=== PATIENT | male | born 1955 | race Caucasian/White ===

== ENCOUNTER → 2019-02-24 07:52 | Outpatient (CLI) | payer OTHER ==
[2015-09-21 15:54] VITALS: BMI 46.2
[~2019-02-24 07:52] MED LIST: ASPIRIN81 MG PO; BAYER CHEWABLE81 MG PO; COREG 3.1253.125 MG PO; COREG12.5 MG PO; EFFIENT10 MG PO; GLUCOPHAGE500 MG PO; LIPITOR80 MG PO; LISINOPRIL5 MG PO; METOPROLOL TART50 MG; PLAVIX75 MG PO; SYNTHROID25 MCG PO; VASERETIC 10-251 TAB; VASOTEC2.5 MG; ZESTRIL20 MG PO
--- NOTE | 2019-02-27 10:07 | EC ---
PATIENT:VICKY LAND DATE OF SERVICE: 02/24/19 SEX: M MEDICAL RECORD: [id number] DATE OF : 57 LOCATION:[facility] AGE OF PATIENT: 63 ADMISSION DATE: 02/24/19 REFERRING PHYSICIAN: INTERPRETING PHYSICIAN: SHERI BECK MD ECHOCARDIOGRAM REPORT ECHO CHARGES 4 ECHO COMPLETE Date: 02/24/19 CLINICAL DIAGNOSIS: HTN/CAD ECHOCARDIOGRAPHIC MEASUREMENTS (adult normal given) AC root (d.<3.7cm) 3.8 cm LV Septum d (<1.2 cm> 1.4 cm Valve Excursion 1.4 cm LV Septum (systole) 14.6 cm Left Atria (s.<4.0cm> 3.9 cm LVPW d(<1.2cm) 1.4 cm RV (d.<2.3cm) 3.5 cm LVPW (sytole) 1.7 cm LV diastole(<5.6CM) 5.5 cm MV E-F(>70mm/sec) cm LV systole 4.4 cm LVOT Diameter 2.1 cm MV exc.(>10mm) 1.4 cm Est.ejection fraction (50-75%) % DOPPLER: LVIT cm/sec A 86.0 cm/sec E 65.0 cm/sec LA cm/sec RVSP 17 mmHg LVOT 110 cm/sec AOP1/2T m/s Asc. Ao 149 cm/sec RVOT 100 cm/sec RA cm/sec PA 145 cm/sec AV Gradient Peak 8.85 mmHg AV Mean 4.93 mmHg AV Area 2.5 cm MV Gradient Peak 3.87 mmHg MV Mean 1.79 mmHg MV Area cm COMMENTS: Enrollment Processor: 2 ALLEN CAI Admittance Attendant: 3 Dr. Rodriguez TAPE# PACS Pericardial Effusion N DATE OF SERVICE: Adequate 2D Echo, Color Flow, Spectral Doppler, And M-Mode LVH is present. LV internal dimension is normal. Wall motion is normal. EF is greater than 55%. Aortic valve is tricuspid. No evidence of stenosis by Doppler interrogation. Left atrium is normal. Mitral valve shows no prolapse. Trace MR. Right-sided chambers are normal. Trace TR. TRANSINT:[id number] Voice Confirmation ID: [id number] DOCUMENT ID: [id number] ECHOCARDIOGRAM REPORT [id number] VICKY LAND SHERI BECK MD at 1007 CC: [id number] DICTATION DATE: 02/24/19 181 LICENSED DIRECT ENTRY MIDWIFE: 02/25/19 0100 DEP CLI 02/24/19 [id number] [place] [address]
== END | disposition home or self-care (01) ==
LOC: D.HCCARDIO 07:52
PROVIDERS: ATTEND Internal Medicine Interventional Cardiology
DX: I25.10 Atherosclerotic heart disease of native coronary artery without angina pectoris (principal)

== ENCOUNTER → 2020-03-08 08:47 | Outpatient (CLI) | payer OTHER ==
[2015-09-21 15:54] VITALS: BMI 46.2
--- NOTE | 2020-03-11 09:10 | EC ---
PATIENT:VICKY LAND DATE OF SERVICE: 03/08/20 SEX: M MEDICAL RECORD: [id number] DATE OF : 57 [facility] AGE OF PAT[facility]: 64 ADMISSION DATE: 03/08/20 REFERRING PHYSICIAN: INTERPRETING PHYSICIAN: SHERI BECK MD ECHOCARDIOGRAM REPORT ECHO CHARGES 4 ECHO COMPLETE Date: 03/08/20 CLINICAL DIAGNOSIS: H/O HTN ECHOCARDIOGRAPHIC MEASUREMENTS (adult normal given) AC root (d.<3.7cm) 3.9 cm LV Septum d (<1.2 cm> 1.6 cm Valve Excursion 1.8 cm LV Septum (systole) 1.7 cm Left Atria (s.<4.0cm> 3.7 cm LVPW d(<1.2cm) 1.2 cm RV (d.<2.3cm) 3.1 cm LVPW (sytole) 1.9 cm LV diastole(<5.6CM) 5.8 cm MV E-F(>70mm/sec) cm LV systole 4.3 cm LVOT Diameter 2.1 cm MV exc.(>10mm) cm Est.ejection fraction (50-75%) % DOPPLER: LVIT cm/sec A 102 cm/sec E 79.0 cm/sec LA cm/sec RVSP mmHg LVOT 100 cm/sec AOP1/2T m/s Asc. Ao 152 cm/sec RVOT 86.0 cm/sec RA cm/sec PA 139 cm/sec AV Gradient Peak 9.3 mmHg AV Mean 5.6 mmHg AV Area 2.4 cm MV Gradient Peak 4.8 mmHg MV Mean 2.0 mmHg MV Area cm COMMENTS: OP - HC Hospitality Services Manager: 1 IVY HEROE Manager System: 3 Dr. Rodriguez TAPE# PACS Pericardial Effusion N DATE OF SERVICE: Adequate 2D, color flow imaging, spectral Doppler, and M-Mode. No LVH. LV internal dimension is dilated. LV wall motion shows global hypokinesis with reduced EF, estimated EF 40% to 45%. Aortic valve sclerosis without stenosis by Doppler interrogation. Left atrium normal at 3.7 cm. Mitral valve shows no prolapse. Trace MR. Right-sided chambers are grossly normal. Trace TR. ECHOCARDIOGRAM REPORT [id number] VICKY LAND TRANSINT:[id number] Voice Confirmation ID: [id number] DOCUMENT ID: [id number] SHERI BECK MD at 0910 CC: [id number] DICTATION DATE: 03/08/20 1251 SOLDERING MACHINE FEEDER: 03/08/20 2243 DEP CLI 03/08/20 [facility] [address] [place] [address]
== END | disposition home or self-care (01) ==
LOC: D.HCCECHO 08:47
PROVIDERS: ATTEND Internal Medicine Interventional Cardiology
DX: I10 Essential (primary) hypertension (principal)

== ENCOUNTER 2020-06-03 06:15 | Day surgery (SDC) | payer OTHER ==
[~2020-06-03] VITALS: Ht 177.8 cm; Wt 122.5 kg
--- NOTE | ~2020-06-03 | HEMODYNAMI ---
PATIENT:VICKY LAND MEDICAL RECORD: [id number] : 57 LOCATION:D.CAT ADMISSION DATE: 06/03/20 Generatedon:06/03/20209:23 Patient name: VICKY LAND Patient #: [id number] SSN: : 1955 Date of study: 06/03/2020 Page: Of Hemodynamic Procedure Report Patient Data Patient Demographics Procedure consent was obtained First Name: VICKY Gender: Male Last Name: SHANDA : 1955 Patient #: [id number] Age: 64 year(s) Race: Additional ID: [id number] Contact details Address: [address] [place] [address] lane State: [place] City: [place] Zip code: [address] Past Medical History Allergies: No known allergies Admission Admission Data Admission Date: 06/03/2020 Admission Time: 6:15 Arrival Date: 06/03/2020 Arrival Time: 0:00 Height (in.): 70.08 BSA: 2.38 (m2) Height (cm.): 178 BMI: 38.82 (kg/m2) Weight (lbs.): 271.17 Weight (kg.): 123 Lab Results Lab Result Date: 06/03/2020 Lab Result Time: 0:00 Biochemistry Name Units Result Min Max BUN mg/dl 13 --(--*-)-- 7 18 Creatinine mg/dl 0.9 --(-*--)-- 0.6 1.3 eGFR ml/min 90 --(*---)-- 90 120 NONAFRICAN CBC Name Units Result Min Max Hematocrit % 31.5 *-(----)-- 42 54 Hemoglobin g/dl 8.9 *-(----)-- 13.5 17.5 Procedure Procedure Types Cath Procedure Diagnostic Procedure [facility] LH w/Coronaries FFR/IVUS FFR Initial Sedation Charges Moderate Sedation up to 30 minutes PCI Procedure PTCA PTCA Initial Hemochron ACT Test Procedure Description Procedure Date Procedure Date: 06/03/2020 Procedure Start Time: 8:35 Procedure Staff Name Function Khanh Echavarria MD Performing Physician Melva Fisher RT Scrub Shy العراقي RT Monitor Daysi Tomlinson RT Office Agent Alejandra Jeffers RN Nurse Procedure Data Cath Procedure Fluoroscopy Diagnostic fluoroscopy Total fluoroscopy Time: 7.1 time: 7.1 min min Diagnostic fluoroscopy Total fluoroscopy dose: dose: 1755 mGy 1755 mGy Contrast Material Contrast Material Type Amount (ml) Isovue 300 154 Entry Location Entry Primary Successful Side Size Upsize Upsize Entry Closure Succes sful Closure Location (Fr) 1 (Fr) 2 (Fr) Remarks Device Remarks Femoral Right 5 Fr 6 Fr Exoseal artery Short Estimated blood loss: 10 ml Diagnostic catheters Device Type Used For End Catheter Placement MULTIPACK JL 4.0 5Fr Left Coronary catheter Angiography MULTIPACK 3DRC 5Fr Right Coronary catheter Angiography DIAGNOSTIC AR MOD 5Fr Right Coronary Catheter ([id number]) Angiography MULTIPACK Pigtail 5 Fr LV Angiography catheter Procedure Complications No complications Procedure Medications Medication Administration Route Dosage 0.9% NaCl I.V. 100 ml/hr Oxygen etCO2 Nasal cannula 2 l/min Lidocaine 2% added to field 20 Heparin Flush Bag added to field 2 bags (1000units/500ml NS) Versed I.V. 2 mg Fentanyl I.V. 50 mcg Heparin Bolus I.V. 2000 units Heparin Bolus I.V. 3000 units Fentanyl I.V. 50 mcg Effient P.O. 60 mg Hemodynamics Rest BSA: 2.38 (m2) HGB: 8.9 (g/dl) O2 Consumption: Estimated: 306.19 (ml/min) O2 Con sumption indexed: Estimated:128.65 (ml/min/m) Heart Rate: 101 (bpm) Pressure Samples Time Site Value (mmHg) Purpose Heart Use Rate(bpm) 8:45 LV 147/17,18 Snapshot 97 Snapshots Pre Cath Intra NCS Post Cath Vital Signs Time Heart Resp SPO2 etCO2 NIBP (mmHg) Rhythm Pain Sedation Rate (ipm) (%) (mmHg) Status Level (bpm) 8:19:59 101 28 100 35 176/114(139) ST 0 (11) 10(A) , No pain 8:24:27 100 19 100 33.8 161/92(123) NSR 0 (11) 10(A) , No pain 8:28:45 98 21 100 30 152/89(117) NSR 0 (11) 10(A) , No pain 8:33:01 95 20 100 36.8 136/85(113) NSR 0 (11) 10(A) , No pain 8:38:00 98 24 100 36.8 Measuring NSR 0 (11) 10(A) , No pain 8:38:12 96 23 100 34.5 149/102(127) NSR 0 (11) 10(A) , No pain 8:42:32 96 16 100 33.8 145/90(114) NSR 0 (11) 10(A) , No pain 8:46:47 100 13 100 26.3 136/86(101) NSR 0 (11) 10(A) , No pain 8:50:58 97 13 100 30 127/89(108) NSR 0 (11) 10(A) , No pain 8:55:12 98 16 100 39 137/87(109) NSR 0 (11) 10(A) , No pain 8:59:26 95 17 100 33 142/88(116) NSR 0 (11) 10(A) , No pain 9:03:34 85 19 100 30 129/95(115) NSR 0 (11) 10(A) , No pain 9:08:33 94 34 35.3 Measuring NSR 0 (11) 10(A) , No pain 9:08:48 94 27 100 35.3 170/108(139) NSR 0 (11) 10(A) , No pain Medications Time Medication Route Dose Verified Delivered Reason Notes Effectiveness by by 8:18:48 0.9% NaCl I.V. 100 Khanh Roberts used for ml/hr ItaliaWilmer Jeffers procedure MD WHITNEY 8:18:54 Oxygen etCO2 2 Khanh Roberts used for Nasal l/min [facility] procedure cannula MD WHITNEY 8:18:59 Lidocaine 2% added 20ml Khanh Cassidy for local to vial [facility] anesthetic field MD CATES 8:19:03 Heparin Flush added 2 Khanh Khanh used for Bag to bags [facility] procedure (1000units/500ml field MD CATES NS) 8:35:03 Fentanyl I.V. 50 Khanh Donatoa for sedation mcg [facility] Wilmer Jeffers MD RN 8:35:54 Versed I.V. 2 mg Khanh Roberts for sedation [facility] Wilmer Jeffers MD RN 8:42:15 Fentanyl I.V. 50 Khanh Roberts for sedation mcg St Wilmer Jeffers MD RN 8:45:59 Heparin Bolus I.V. 2000 Khanh Roberts for verifi ed units St Wilmer Jeffers anticoagulation with Dr. CTAES RN [facility] 8:59:02 Heparin Bolus I.V. 3000 Khanh Roberts for units ItaliaWilmer Jeffers anticoagulation RN 9:09:16 Effient P.O. 60 mg Khanh Roberts for ItaliaWilmer Jeffers antiplatelet RN therapy Procedure Log Time Note 8:09:08 Informed consent obtained and on chart 8:10:31 Procedure Status Elective Heart Cath (OP). 8:10:47 Daysi Tomlinson RT(R) sent for patient. Start room use. 8:10:50 Time tracking: Regular hours (M-F 7:00 - 5:00) 8:10:58 Plan of Care:Hemodynamics will remain stable., Cardiac rhythm will remain stable., Comfort level will be maintained., Respiratory function will remain adequate., Patient/ family verbilizes understanding of procedure., Procedure tolerated without complication., Recovers from procedure without complications.. 8:11:20 Patient diabetic? Yes. 8:11:23 If diabetic: On Metformin? Yes 8:11:29 If on Metformin: Last Dose? 06/01/2020 8:12:28 Patient received from Pre/Post Procedure Room to CCL 1 Alert and oriented. Tansferred to table in Supine position. 8:12:31 Warm blankets applied, and thelma hugger turned on for patient comfort. 8:12:32 ECG and BP/O2 sat monitors applied to patient. 8:12:32 Correct patient and procedure confirmed by team. 8:12:45 H&P Date Dictated: 06/03/2020 H&P Addendum completed by physician on day of procedure. (MUST COMPLETE FOR ALL OUTPATIENTS), New H&P dictated by physician.. 8:12:47 Pre-procedure instructions explained to patient. 8:12:48 Pre-op teaching completed and patient verbalized understanding. 8:12:50 Family in patients room. 8:12:52 Patient NPO since Midnight. 8:13:09 Patient allergic to No known allergies 8:13:14 Is the patient allergic to Iodine/contrast media? No. 8:13:18 Is patient on blood thinner?No 8:14:22 Lab Result : Hemoglobin 8.9 g/dl 8:14: Lab Result : Hematocrit 31.5 % 8:14:22 Lab Result : eGFR NONAFRICAN 90 ml/min 8:14:22 Lab Result : BUN 13 mg/dl 8:14: Lab Result : Creatinine 0.9 mg/dl 8:14:45 Arrival Date: 06/03/2020 12:00:00 AM 8:14:50 Patient Height : 70.08 inches 8:14:55 Patient Weight : 271.17 lbs 8:18:19 ----Pre-sedation anethsthesia assessment.---- 8:18:21 ----Pre-sedation anethsthesia assessment.---- 8:18:28 Previous problem with sedation/anesthesia? No ? 8:18:31 Snore? Yes 8:18:41 Vital chart was started 8:18:48 0.9% NaCl 100 ml/hr I.V. was administered by Alejandra Jeffers RN; used for procedure; Verbal order read back and verified. 8:18:54 Oxygen 2 l/min etCO2 Nasal cannula was administered by Alejandra Jeffers RN; used for procedure; Verbal order read back and verified. 8:18:59 Lidocaine 2% 20ml vial added to field was administered by Khanh Echavarria MD; for local anesthetic; Verbal order read back and verified. 8:19:03 Heparin Flush Bag (1000units/500ml NS) 2 bags added to field was administered by Khanh Echavarria MD; used for procedure; Verbal order read back and verified. 8:19:35 Sleep apnea? Yes 8:19:39 Deviated septum? Unknown 8:19:42 Opens mouth fully? Yes 8:19:45 Sticks out tongue? Yes 8:20:21 Airway obstruction? No RECOVERING FORM DOUBLE PNEUMONIA ON RIGHT 8:20:27 Dentures? No ? 8:20:32 8:20:36 Pre procedure: right dorsailis pedis pulse 2+ Normal; easily identifiable; not easily obliterated 8:20:50 IV patent on arrival in right antecubital with 0.9% NaCl at O. 8:20:55 Lab results completed and on chart. 8:21:03 Right groin area was prepped with chlora-prep and draped in sterile fashion 8:21:05 Sharps counted by scrub and verified by R.N. 8:21:05 Alarms reviewed by R. N. 8:21:11 Use device set Femoral Dx 8:21:13 ACIST Syringe (85463) opened to sterile field. 8:21:14 Bag Decanter (2002S) opened to sterile field. 8:21:15 Medline Cath Pack ([id number]) opened to sterile field. 8:21:17 ACIST Hand Control (57631) opened to sterile field. 8:21:18 ACIST Manifold (90890) opened to sterile field. 8:21:19 DIAGNOSTIC Multipack 5Fr catheter set ([id number]) opened to sterile field. 8:21:20 Tegaderm 4 x 4 (1626W) opened to sterile field. 8:21:22 EMERALD Guide Wire (735-560) opened to sterile field. 8:21:22 SHEATH 5FR [place] (JRZ633) opened to sterile field. 8:23:39 ACCPatient has been prescribed/administered the following anti-anginal medication within the last 2 weeks: Beta Kristin 8:23:47 ACC Patient presents with Stable Angina CCS Anginal Class 3--Marked limitation of physical activity, angina occurs with ordinary activity.. 8:23:51 Baseline sample Acquired. 8::55 Rhythm: sinus rhythm 8:23:59 Full Disclosure recording started 8:28:24 Risk of Mortality: 1.4 8:28:30 Risk of blood transfusion: 7.7 8:28:38 Risk of KENNETH: 0.8 8:34:31 Physician arrived 8:34:32 --------ALL STOP TIME OUT------ 8:34:33 Final Timeout: patient, procedure, and site verified with staff and physician. All members of the team are in agreement. 8:34:36 Right groin site verified by team. 8:34:41 Fire Safety Assessment: A--An alcohol-based skin anteseptic being used preoperatively., C--Open oxygen or nitrous oxide is being used., D--An ESU, laser, or fiber-optic light is being used. 8:34:45 Physical assessment completed. ASA score P 2 - A patient with mild systemic disease as per Khanh Echavarria MD. 8:34:49 1) 90+ Normal kidney functon but urine findings or structural abnormalities or genetic trait point to kidney disease. 8:34:53 Maximum allowable contrast dose (3.7 X eGFR X 0.75)250 ml. 8:34:59 Sedation plan: IV Moderate Sedation Medication:Versed, Fentanyl 8:35:03 Fentanyl 50 mcg I.V. was administered by Alejandra Jeffers RN; for sedation; Verbal order read back and verified. 8:35:05 Procedure started. 8:35:11 Local anesthetic to right femoral artery with Lidocaine 2% by Khanh Echavarria MD.INITIAL ACCESS ONLY 8:35:54 Versed 2 mg I.V. was administered by Alejandra Jeffers RN; for sedation; Verbal order read back and verified. 8:37:19 A 5 Fr sheath was inserted into the Right Femoral artery 8:37:23 Zero performed for pressure channel P1 8:37:39 A MULTIPACK JL 4.0 5Fr catheter was advanced over the wire and used for Left Coronary Angiography. 8:38:34 LCA angiography performed. 8:38:49 Injector settings: Ml/sec: 3, Volume: 6, 8:40:05 Catheter removed. 8:40:29 A MULTIPACK 3DRC 5Fr catheter was advanced over the wire and used for Right Coronary Angiography. 8:41:40 RCA angiography performed. 8:41:48 Injector settings: Ml/sec: 3, Volume: 6, 8:42:15 Fentanyl 50 mcg I.V. was administered by Alejandra Jeffers RN; for sedation; Verbal order read back and verified. 8:43:27 A DIAGNOSTIC AR MOD 5Fr Catheter (665275E) was advanced over the wire and used for Right Coronary Angiography. 8:43:59 Injector settings: Ml/sec: 3, Volume: 6, 8:44:03 Catheter removed. 8:44:11 A MULTIPACK Pigtail 5 Fr catheter was advanced over the wire and used for LV Angiography. 8:45:09 LV gram done using [place] 8:45:59 Heparin Bolus 2000 units I.V. was administered by Alejandra Jeffers RN; for anticoagulation; verified with Dr. Rodriguez Verbal order read back and verified. 8:46:10 Injector settings: Ml/sec: 10, Volume: 20, 8:46:12 EF : 20 % 8:46:30 LV hemodynamics recorded. 8:46:37 Catheter removed. 8:46:38 Proceeding to intervention. 8:47:13 [place] Verrata Plus pressure wire (77858D) opened to sterile field. 8:47:19 FFR/IFR wire advanced. 8:51:14 Wire advanced across lesion. 8:54:14 mLAD lesion measured at 0.62 with IFR 8:55:17 SHEATH 6FR [place] (PRT018) opened to sterile field. 8:55:28 BMW 300cm [place] 2 J wire ([id number]) opened to sterile field. 8:55:36 INFLATOR Merit BasixCompak (TW8276) opened to sterile field. 8:55:45 GUIDE 6FR XBLAD 3.5 catheter (63275047) opened to sterile field. 8:56:16 Proceeding to intervention. 8:56:29 Sheath upsized to a 6 Fr Short. 8:56:37 ACC Pre-intervention BARBIE Flow is 3. 8:56:57 6 Fr XBLAD3.5 guide catheter was inserted over the wire 8:57:05 KPS934 wire advanced. 8:58:10 Pre PCI Site: Habematolel mLAD has 80% stenosis. 8:59:02 Heparin Bolus 3000 units I.V. was administered by Alejandra Jeffers RN; for anticoagulation; Verbal order read back and verified. 9:01:34 Inflate balloon Inflation number: 1 A EMERGE OTW 3.0 x 15 balloon ([id number]) was prepped and advanced across the Mid LAD , then inflated to 12 MARLENE for 0:24 (min:sec) . 9:02:09 Inflation number: 2 The EMERGE OTW 3.0 x 15 balloon ([id number]) was reinflated across the Mid LAD , to 14 MARLENE for 0:27 (min:sec) . 9:03:03 Inflation number: 3 The EMERGE OTW 3.0 x 15 balloon ([id number]) was reinflated across the Mid LAD , to 14 MARLENE for 0:18 (min:sec) . 9:03:48 Balloon removed over the wire. 9:03:49 Wire removed. 9:03:50 Guide catheter removed. 9:04:23 Post PCI Site: Habematolel mLAD has 0% stenosis. 9:04:37 ACC Post-intervention BARBIE Flow is 3. 9:05:37 EXOSEAL 6Fr (EX600) opened to sterile field. 9:05:52 Sheath removed intact; hemostasis achieved with Exoseal to the Right Femoral artery. 9:05:56 Procedure ended.(Physican Out) 9:06:16 Contrast amount:Isovue 300 154ml. 9:06:24 Fluoroscopy time 07.10 minutes. 9:06:30 Fluoroscopy dose: 1755 mGy 9:06:30 Flurop Dose total: 1755 9:06:38 Dose Area Product 12596 mGy/cm. 9:06:44 Maximum allowable dose exceeded? No. 9:06:45 Sharps counted by scrub and verified by R.N. 9:06:47 Insertion/operative site no bleeding no hematoma. 9:06:51 Post-op/insertion site Right Femoral artery dressed using a 4 x 4 and Tegaderm. 9:06:57 Post-procedure physical assessment completed. ASA score P 2 - A patient with mild systemic disease as per Khanh Echavarria MD. 9:07:01 Post procedure rhythm: unchanged. 9:07:13 Estimated blood loss: 10 ml 9:07:15 Post procedure instruction explained to patient.Patient verbalizes understanding. 9:07:17 Patient needs reinforcement of post procedure teaching. 9:08:34 ACT drawn and resulted at 204 seconds. (normal therapeutic range 180-240 seconds). 9:09:05 Procedure type changed to Cath procedure, Diagnostic procedure, LHC, LHC w/Coronaries, FFR/IVUS, FFR Initial, Sedation Charges, Moderate Sedation up to 30 minutes, PCI procedure, PTCA, PTCA Initial, Hemochron ACT Test 9:09:07 Procedure and supply charges have been captured, reviewed, submitted and are correct. 9:09:16 Effient 60 mg P.O. was administered by Alejandra Jeffers RN; for antiplatelet therapy; Verbal order read back and verified. 9:11:23 Procedure Complication : No complications 9:11:31 Vital chart was stopped 9:12:28 [facility] Findings: MVD- PCI performed (see procedure note) 9:12:30 Operative report dictated upon procedure completion. 9:18:02 Full Disclosure recording stopped 9:21:44 See physician's report for complete and final results. 9:21:46 Report given to Pre/Post Procedure Room. 9:21:51 Patient transfered to Pre/Post Procedure Room with Stretcher. 9:22:02 ACC-PCI Only Patient was given prescriptions, or instructed by Khanh Echavarria MD to start/continue the following medications upon discharge: Effient 9:22:04 End room use (Document Last) Intervention Summary Intervention Notes Time ActionType Lesion and Equipment Action# Pressure Duration Attributes Used 9:01:34 Inflate Mid LAD EMERGE OTW 1 12 00:24 balloon 3.0 x 15 balloon ([id number]) 9:02:09 Reinflate Mid LAD EMERGE OTW 2 14 00:27 balloon 3.0 x 15 balloon ([id number]) 9:03:03 Reinflate Mid LAD EMERGE OTW 3 14 00:18 balloon 3.0 x 15 balloon ([id number]) Device Usage Item Name Manufacture Quantity Catalog Number Hospital Part Current Minimal Lot# / Charge Number Stock Stock Serial# Code ACIST Acist 1 80033 933139 402666 582076 20 Syringe Medical (07924) Systems Inc Bag Decanter Microtek 1 2001S 610205 92854 746108 5 (2001S) Medical Inc. Medline Cath Medline 1 [id number] 312040 51936 920505 5 Pack ([id number]) ACIST Hand Acist 1 26311 894498 147909 370116 5 Control Medical (26575) Systems Inc ACIST Acist 1 26478 302778 803489 928581 5 Manifold Medical (23506) Systems Inc DIAGNOSTIC Cardinal 1 WB0888 158623 32351 062124 30 [place] [employer] Health 5Fr catheter set (EZ0318) Tegaderm 4 x 3M 1 1626W 148973 120004 465894 5 4 (1626W) SHEATH 5FR Terumo 1 IRX878 089249 074926 368404 5 [place] (DJA915) EMERALD Cardinal 1 502-455 864446 649564 016043 5 Guide Wire Health (502455) MULTIPACK JL Cardinal 1 010861 5 4.0 5Fr Health catheter MULTIPACK Cardinal 1 268699 5 3DRC 5Fr Health catheter DIAGNOSTIC Cardinal 1 244343Y 615586 112392 367627 15 AR MOD 5Fr Health Catheter (711184T) MULTIPACK Cardinal 1 216481 5 Pigtail 5 Fr Health catheter [place] 1 00600J 016099 732798672 152357 5 Verrata Plus pressure wire (65367Q) SHEATH 6FR Terumo 1 VRQ496 742982 386981 660891 40 [place]ola (EYC599) BMW 300cm [place] 1 0061445T 992995 853368 539381 5 [place] 2 Vascular J wire (3265842Q) INFLATOR Merit 1 MX0935 992905 354634 521643 15 Merit [facility] [place] Medical BasixCompak (UN8322) GUIDE 6FR Cardinal 1 [id number] 826842 045849 467639 10 XBLAD 3.5 Health catheter (89369851) EMERGE OTW [place] 1 [id number] 867998 169592 997226 5 [id number] 3.0 x 15 Scientific balloon ([id number]) EXOSEAL 6Fr Cardinal 1 EX600 593287 715663 049483 10 (EX600) Health Signature Audit [place] Stage Time Signature Unsigned Intra-Procedure 06/03/2020 Shy 9:22:34 AM Dulce Maria RT(R) (CV) Intra-Procedure 06/03/2020 Alejandra Jeffers 9:23:00 AM RN Intra-Procedure 06/03/2020 Khanh Vega 9:23:24 AM Wilmer CATES [facility] [address] [facility] [place] [address]
[2020-06-03 07:11] VITALS: BP 159/80; Ht 177.8 cm; Wt 122.5 kg
[2020-06-03 07:18] LABS: BASOPHILS 2.1 % (0-2); EOSINOPHILS 2.5 % (0-7); HEMATOCRIT 31.5 % (42.0-54.0); HEMOGLOBIN 8.9 g/dL (13.5-17.5); LYMPHOCYTES 16.7 % (15-50); MCHC 28.3 g/dL (31.0-37.0); MCV 63.9 fL (80.0-100.0); MONOCYTES 7.9 % (2-11); NEUTROPHILS 70.8 % (40-80); RBC 4.93 10x6/uL (4.20-6.10); RDW 19.1 % (11.5-14.5); WBC 4.3 10x3/uL (4.8-10.8)
[2020-06-03] MEDS ORDERED: SYNTHROID125 MCG PO (07:24)
[2020-06-03] MEDS ORDERED: GLIPIZIDE10 MG PO (07:25)
[2020-06-03] MEDS ORDERED: VICTOZA0.6 MG/0.1 SQ (07:25)
[2020-06-03 07:34] LABS: MCH 18.1 pg (26.0-34.0); PLATELET COUNT 271 10x3/uL (130-400)
[2020-06-03 07:40] LABS: ALT (SGPT) 29 U/L (10-68); CALC OSMOLALITY 279 mosm/kg (275-300); CALCIUM 8.8 mg/dL (8.5-10.1); CARBON DIOXIDE 25.3 mmol/L (21.0-32.0); CHLORIDE - SERUM 101 mmol/L (98-107); CHOLESTEROL, TOTAL 179 mg/dL (0-200); CREATININE - SERUM 0.9 mg/dL (0.6-1.3); HDL CHOLESTEROL 45 mg/dL (32-96); LDL CHOLESTEROL 112 mg/dL (0-100); LDL-HDL RATIO 2.5 ratio (1.5-3.5); SODIUM 134 mmol/L (136-145); TRIGLYCERIDE 113 mg/dL (30-200); UREA NITROGEN 13 mg/dL (7-18); eGFR NON AFRICAN AMERICAN > 90 mL/min (90-120)
[2020-06-03 07:47] LABS: GLUCOSE 313 mg/dL (74-106)
--- NOTE | 2020-06-03 09:25 | NUR ---
PT REC'D TO ROOM 8 VIA WC FROM MANAGEMENT AIDE. MONITORS ESTAB. AT BS AND HAS BEEN UPDATED BY DR. BECK. SEE SEED SALES MANAGER. ALARMS ON AND C/L IN REACH.
[2020-06-03] MEDS ORDERED: EFFIENT10 MG PO (09:31)
[2020-06-03] MEDS ORDERED: ALDACTONE25 MG PO (09:32)
--- NOTE | 2020-06-03 09:40 | NUR ---
R GROIN SITE SOFT, NO S/S BLEEDING OR HEMATOMA. R LEG/FOOT WARM WITH PALP PULSES AND BRISK CAP REFILL. AT BS ASSISTING PT WITH ICE CHIPS. VSS. PT DENIES PAIN OR NEEDS.
--- NOTE | 2020-06-03 10:10 | NUR ---
R GROIN SITE C/D/I, NO S/S BLEEDING OR HEMATOMA. PULSES PALP.
--- NOTE | 2020-06-03 10:35 | NUR ---
PT C/O BACK PAIN "JUST UNCOMFORTABLE LAYING FLAT". DR. BECK NOTIFIED - NEW ORDER REC'D. SEE EMAR. R GROIN SITE SOFT, NO S/S BLEEDING OR HEMATOMA. AT BS. C/L IN REACH.
--- NOTE | 2020-06-03 11:00 | NUR ---
PT HAD EPISODE OF NAUSEA, SBP 81, IVFS INFUSING - SBP 96 NOW AND PT REPORTS FEELING BETTER. R GROIN SITE SOFT, NO S/S BLEEDING OR HEMATOMA. AT BS. WILL CONT CLOSE MONITORING.
--- NOTE | 2020-06-03 11:24 | NUR ---
B/P 104/60, PT DENIES PAIN OR NEEDS. R GROIN SITE SOFT, NO S/S BLEEDING OR HEMATOMA. ALARMS ON AND C/L IN REACH.
--- NOTE | 2020-06-03 11:45 | NUR ---
PT RESTING QUIETLY, VSS. R GROIN SITE SOFT, C/D/I. PULSES PALP. ALARMS ON AND C/L IN REACH.
--- NOTE | 2020-06-03 12:05 | NUR ---
R GROIN SITE C/D/I, NO S/S BLEEDING OR HEMATOMA. HOB ELEVATED SLOWLY. SANDWICH AND DIET SPRITE PROVIDED. VSS. C/L IN REACH.
--- NOTE | 2020-06-03 12:30 | NUR ---
PT VOIDED 300ML CLEAR, YELLOW URINE. R GROIN SITE SOFT, NO S/S BLEEDING OR HEMATOMA. PULSES PALP. PT DENIES PAIN OR N/V. VSS.
--- NOTE | 2020-06-03 12:40 | NUR ---
ALL DISCHARGE INSTRUCTIONS REVIEWED WITH PT AND HIS INCLUDING NEW MEDS (INFORMATION SHEETS PROVIDED), RESTRICTIONS AND F/U APPT.
--- NOTE | 2020-06-03 12:49 | NUR ---
PIV D/C'D INTACT, DSG APPLIED. PT ALLOWED UP TO GET DRESSED AND GO TO BR. ASSISTING PT.
--- NOTE | 2020-06-03 13:00 | NUR ---
PT D/C'D VIA WC TO PRIVATE VEHICLE WITH - PT HAS ALL BELONGINGS AND PAPERWORK.
--- NOTE | 2020-06-05 08:18 | OP ---
PATIENT NAME: VICKY LAND MEDICAL RECORD: [id number] :57 LOCATION:D.CAT ADMISSION DATE: SURGEON: SHERI BECK MD DATE OF OPERATION: 06/03/2020 PROCEDURE: Left heart catheterization, selective coronary angiography plus IFR wire to the LAD plus intervention to the LAD, right femoral artery approach. CATHETERS: A 5-[place] sheath, 5/4 left and right Deepak, 5/4 pig. The procedure was well tolerated. We proceeded to PTCA of the LAD after IFR wire. FINDINGS: Left ventriculography in 30-degree [place] view shows global hypokinesis with reduced EF, estimated EF 25%. CORONARY ANATOMY: LEFT MAIN: Left main is really only single vessel LAD with normal circ. LAD: LAD shows diffuse what appeared to be restenosis with at least 80% in its proximal third. This confirmed with an IFR wire of 0.67. CIRCUMFLEX: Normal circumflex coming off the right coronary artery cusp is free of disease. RIGHT CORONARY ARTERY: Itself totally occluded, fills via left to right collaterals from the septal arcade. IMPRESSION: An extra IFR wire was used to confirm significant stenosis in the proximal left anterior descending as described above. DESCRIPTION OF PROCEDURE: A 5-[place] sheath was exchanged for a 6-[place] sheath. XB LAD guiding catheter provided good guide catheter support followed by 300 cm Whisper wire placed across the totally occluded LAD down the distal portion of this vessel. Balloon used was a 3.0 x 15 Dillon balloon up to 14 atmospheres for 45 seconds for multiple inflations with excellent resolution of 80% stenosis, no significant residual. BARBIE flow was 3 throughout the procedure. Heparin and Integrilin was used during the case. Sheath closed with ExoSeal device. TRANSINT:[id number] Voice Confirmation ID: [id number] DOCUMENT ID: [id number] SHERI BECK MD at 0818 CC: [id number] DICTATION DATE: 06/03/20914 [employer]: 06/03/202104 [facility] 06/03/20 [facility] [address] [place] [address]
== END 2020-06-03 13:00 | disposition home or self-care (01) ==
LOC: D.CATH 06:15
PROVIDERS: ATTEND Internal Medicine Interventional Cardiology
DX: I25.119 Atherosclerotic heart disease of native coronary artery with unspecified angina pectoris (principal); I10 Essential (primary) hypertension; E78.5 Hyperlipidemia, unspecified; E11.9 Type 2 diabetes mellitus without complications

== ENCOUNTER → 2020-12-12 09:38 | Outpatient (CLI) | payer OTHER ==
[2020-09-17 14:22] VITALS: BMI 38.7
[~2020-12-12 09:38] MED LIST changes: +ALDACTONE25 MG PO; +GLIPIZIDE10 MG PO; +LEVOFLOXACIN500 MG PO; +SYNTHROID125 MCG PO; +TYLENOL W/CODEI1 TAB PO; +VICTOZA0.6 MG/0.1 SQ
--- NOTE | 2020-12-13 07:55 | EC ---
PATIENT:BRAD LAND DATE OF SERVICE: 12/12/20 SEX: M MEDICAL RECORD: [id number] DATE OF : 57 LOCATION:[facility] AGE OF PATIENT: 65 ADMISSION DATE: 12/12/20 REFERRING PHYSICIAN: INTERPRETING PHYSICIAN: SHERI BECK MD ECHOCARDIOGRAM REPORT ECHO CHARGES 4 ECHO COMPLETE Date: 12/12/20 CLINICAL DIAGNOSIS: CARDIOMYOPATHY/ASSESS EF/AO. SCL. HX OF CAD/HTN/CHEMO ECHOCARDIOGRAPHIC MEASUREMENTS (adult normal given) AC root (d.<3.7cm) 3.5 cm LV Septum d (<1.2 cm> 1.4 cm Valve Excursion 1.5 cm LV Septum (systole) 1.7 cm Left Atria (s.<4.0cm> 3.5 cm LVPW d(<1.2cm) 1.5 cm RV (d.<2.3cm) 3.5 cm LVPW (sytole) 1.8 cm LV diastole(<5.6CM) 5.4 cm MV E-F(>70mm/sec) cm LV systole 3.7 cm LVOT Diameter 2.1 cm MV exc.(>10mm) 1.5 cm Est.ejection fraction (50-75%) % DOPPLER: LVIT cm/sec A 49.0 cm/sec E 116.0 cm/sec LA cm/sec RVSP 19 mmHg LVOT 101 cm/sec AOP1/2T m/s Asc. Ao 156 cm/sec RVOT 119 cm/sec RA cm/sec PA 144 cm/sec AV Gradient Peak 9.75 mmHg AV Mean 5.11 mmHg AV Area 2.6 cm MV Gradient Peak 7.41 mmHg MV Mean 2.68 mmHg MV Area cm COMMENTS: Sample Worker: 2 ALLEN CAI First Assistant Manager: 3 Dr. Rodriguez TAPE# PACS Pericardial Effusion N DATE OF SERVICE: Adequate 2D, color flow imaging, spectral Doppler, and M-Mode. FINDINGS: LVH is present. LV internal dimension is normal. LV is mildly globally hypo with EF lower limits of normal to mildly reduced 45% to 50%. Aortic valve is sclerosed without stenosis by Doppler interrogation. Left atrium is normal at 3.5 cm. Mitral valve shows no prolapse. Trace MR. Right side is grossly normal. Trace TR. ECHOCARDIOGRAM REPORT [id number] BRAD LAND TRANSINT:[id number] Voice Confirmation ID: [id number] DOCUMENT ID: [id number] SHERI BECK MD at 0755 CC: [id number] DICTATION DATE: 12/12/20 1633 SHOWCASE TRIMMER: 12/12/20 1702 DEP CLI 12/12/20 [facility] [address] [place] [id number]
== END | disposition home or self-care (01) ==
LOC: D.HCCECHO 09:38
PROVIDERS: ATTEND Internal Medicine Interventional Cardiology
DX: I42.9 Cardiomyopathy, unspecified (principal)

== ENCOUNTER 2021-03-31 10:03 | Day surgery (SDC) | payer OTHER ==
[~2021-03-31] VITALS: Ht 180.3 cm; Wt 115.9 kg
[2021-03-31 10:22] LABS: BASOPHILS 1.2 % (0-2); EOSINOPHILS 2.3 % (0-7); HEMATOCRIT 47.4 % (42.0-54.0); HEMOGLOBIN 16.1 g/dL (13.5-17.5); LYMPHOCYTES 11.5 % (15-50); MCH 30.5 pg (26.0-34.0); MCV 89.8 fL (80.0-100.0); MEAN PLATELET VOLUME 7.2 fL (7.4-10.4); MONOCYTES 6.8 % (2-11); NEUTROPHILS 78.2 % (40-80); PLATELET COUNT 236 10x3/uL (130-400); RBC 5.28 10x6/uL (4.20-6.10); RDW 14.8 % (11.5-14.5)
[2021-03-31 10:35] LABS: CALC OSMOLALITY 287 mosm/kg (275-300); CALCIUM 9.7 mg/dL (8.5-10.1); CARBON DIOXIDE 31.1 mmol/L (21.0-32.0); CHLORIDE - SERUM 106 mmol/L (98-107); CREATININE - SERUM 0.9 mg/dL (0.6-1.3); POTASSIUM - SERUM 5.2 mmol/L (3.5-5.1); SODIUM 143 mmol/L (136-145); UREA NITROGEN 7 mg/dL (7-18); eGFR NON AFRICAN AMERICAN 90 mL/min (90-120)
[2021-03-31 10:36] LABS: GLUCOSE 184 mg/dL (74-106)
[2021-03-31] MEDS ORDERED: GABAPENTIN300 MG (10:46)
[2021-03-31 10:52] VITALS: BP 160/99; Ht 180.3 cm; Wt 115.9 kg
--- NOTE | 2021-03-31 16:50 | NUR ---
DR VERNON SPEAKING TO PT'S IN ROOM 1719 DC TEACHING COMPLETE TO PT AND , VERBALIZED UNDERSTANDING 173 PIV REMOVED, CATHETER INTACT, HELPING PT TO DRESS 1745 PT DC'D VIA WC ACCOMPANIED BY CHELO MONTEZ TO POV WITH ALL BELONGINGS AND DC PACKET. DRIVING.
== END 2021-03-31 17:45 | disposition home or self-care (01) ==
LOC: D.OPS 10:03
PROVIDERS: Anesthesiology; ATTEND Surgery
DX: Z12.11 Encounter for screening for malignant neoplasm of colon (principal); Z85.038 Personal history of other malignant neoplasm of large intestine; R19.7 Diarrhea, unspecified; A04.72 Enterocolitis due to Clostridium difficile, not specified as recurrent